=== PATIENT | female | born 1960 | race Caucasian/White ===

== ENCOUNTER 2020-08-23 04:34 | Inpatient (IN) | payer BC, OTHER ==
[~2020-08-23] VITALS: Ht 165.1 cm; Wt 96.5 kg
[2020-08-23 04:53] LABS: HEMOGLOBIN 11.4 gm/dl (12.3-15.3); RED BLOOD COUNT 4.01 M/UL (4.00-5.10); WHITE BLOOD COUNT 11.2 K/UL (4.5-11.0)
[2020-08-23 05:25] LABS: BUN/CREATININE RATIO 17 (0-10)
[2020-08-23] MEDS ORDERED: ONDANSETRON ODT4 MG PO (09:05)
[2020-08-23] MEDS ORDERED: CEPHALEXIN500 MG PO (09:05)
[2020-08-23] MEDS ORDERED: OMEPRAZOLE20 MG PO (09:05)
[2020-08-23] MEDS ORDERED: ELIQUIS2.5 MG PO (09:06)
[2020-08-23] MEDS ORDERED: DOCUSATE SODIU100 MG PO (09:07)
[2020-08-23] MEDS ORDERED: ACETAMINOPHEN500 MG PO (09:07)
[2020-08-23] MEDS ORDERED: OXYCODONE HCL5 MG PO (09:08)
[2020-08-23] MEDS ORDERED: TRAMADOL HCL50 MG PO (09:08)
[2020-08-23] MEDS ORDERED: MEGA BIOTIN10000 MCG PO (09:10)
[2020-08-23] MEDS ORDERED: CRESTOR10 MG PO (09:10)
[2020-08-23] MEDS ORDERED: PEPCID20 MG PO (09:11)
[2020-08-23] MEDS ORDERED: OCUVITE EYE PL1 EACH PO (09:12)
[2020-08-23] MEDS ORDERED: FOSAMAX70 MG PO (09:13)
[2020-08-23] MEDS ORDERED: VITAMIN D250 MCG PO (09:13)
[2020-08-23] MEDS ORDERED: XYZAL5 MG PO (09:13)
[2020-08-23] MEDS ORDERED: FLONASE ALLER15.8 ML (09:14)
[2020-08-23 10:54] LABS: HEMOGLOBIN 11.4 gm/dl (12.3-15.3); RED BLOOD COUNT 3.97 M/UL (4.00-5.10); WHITE BLOOD COUNT 10.2 K/UL (4.5-11.0)
[2020-08-23 13:45] LABS: BUN/CREATININE RATIO 13 (0-10)
[2020-08-24 04:02] LABS: HEMOGLOBIN 10.2 gm/dl (12.3-15.3); RED BLOOD COUNT 3.57 M/UL (4.00-5.10); WHITE BLOOD COUNT 10.3 K/UL (4.5-11.0)
[2020-08-24 04:28] LABS: BUN/CREATININE RATIO 12 (0-10)
--- NOTE | 2020-08-24 19:46 | NUR ---
Report called to sabi Weiss med surg nurse. Patient transferred to room 4109 by bed at this time.
[2020-08-24 23:53] LABS: BUN/CREATININE RATIO 12 (0-10)
[2020-08-25 01:34] LABS: HEMOGLOBIN 9.6 gm/dl (12.3-15.3); RED BLOOD COUNT 3.35 M/UL (4.00-5.10); WHITE BLOOD COUNT 7.9 K/UL (4.5-11.0)
[2020-08-25 01:51] LABS: BUN/CREATININE RATIO 11 (0-10)
[2020-08-25 16:50] LABS: BUN/CREATININE RATIO 13 (0-10)
[2020-08-26 06:00] LABS: HEMOGLOBIN 8.7 gm/dl (12.3-15.3); RED BLOOD COUNT 3.04 M/UL (4.00-5.10); WHITE BLOOD COUNT 6.8 K/UL (4.5-11.0)
[2020-08-26 06:16] LABS: BUN/CREATININE RATIO 13 (0-10)
[2020-08-26] MEDS ORDERED: CLARITIN 10MG T10 MG PO (09:31)
[2020-08-26] MEDS ORDERED: ELIQUIS 5 MG TAB5 MG PO (09:31)
[2020-08-26] MEDS ORDERED: HYDROCODON-ACE1 EAC4 PO (10:38)
== END 2020-08-26 13:20 | disposition home or self-care (01) | DRG 175 ==
LOC: ER1 04:34 → CDU 08:21 → MED SURG 4 08:21 → CCU 08:21 → MED SURG 4 08-24 20:38 → 2 EAST 08-24 20:39 → MED SURG 4 08-24 21:05
PROVIDERS: Family Medicine; Internal Medicine Nephrology; Physician Assistant Medical; ADMIT Family Medicine
DX: I26.99 Other pulmonary embolism without acute cor pulmonale (principal); J96.01 Acute respiratory failure with hypoxia; G92 Toxic encephalopathy; E87.1 Hypo-osmolality and hyponatremia; D64.9 Anemia, unspecified; R63.1 Polydipsia; Z96.651 Presence of right artificial knee joint; E78.5 Hyperlipidemia, unspecified; Z90.49 Acquired absence of other specified parts of digestive tract; Z90.710 Acquired absence of both cervix and uterus; Z88.2 Allergy status to sulfonamides; Z91.09 Other allergy status, other than to drugs and biological substances; Z98.51 Tubal ligation status; Z72.0 Tobacco use
CPT/HCPCS: ECHO; 36415; 36600; 80048; 80053; 82533; 82550; 82553; 82803; 83540; 83550; 83605; 83735; 83874; 83880; 84439; 84443; 84484; 85025; 85027; 85610; 85730; 93005; 93306; 93970; 96374; 97110-GP-CQ; 97116-GP-CQ; 97162; 97165; 97530-GP-CQ; 99285; J1644; J1650; J2310; J2405; J7030; Q9967; U0002

== ENCOUNTER → 2021-03-30 | Outpatient (CLI) | payer BC ==
[~2021-03-30] MED LIST: ACETAMINOPHEN500 MG PO; CEPHALEXIN500 MG PO; CLARITIN 10MG T10 MG PO; CRESTOR10 MG PO; DOCUSATE SODIU100 MG PO; ELIQUIS 5 MG TAB5 MG PO; ELIQUIS2.5 MG PO; FLONASE ALLER15.8 ML; FOSAMAX70 MG PO; HYDROCODON-ACE1 EAC4 PO; MEGA BIOTIN10000 MCG PO; OCUVITE EYE PL1 EACH PO; OMEPRAZOLE20 MG PO; ONDANSETRON ODT4 MG PO; OXYCODONE HCL5 MG PO; PEPCID20 MG PO; TRAMADOL HCL50 MG PO; VITAMIN D250 MCG PO; XYZAL5 MG PO
== END ==
LOC: MAMO 14:24
DX: Z12.31 Encounter for screening mammogram for malignant neoplasm of breast (principal)
CPT/HCPCS: 77063; 77067

== ENCOUNTER → 2021-10-03 | Outpatient (CLI) | payer BC | LOC: KOH-I 09-19 10:30 | DX: Z87.891 Personal history of nicotine dependence (principal); R91.1 Solitary pulmonary nodule | CPT/HCPCS: 71271 ==